=== PATIENT | female | born 2000 | race Two or more races ===

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

== ENCOUNTER 2019-03-09 06:16 | Day surgery (SDC) | payer BC ==
[2019-03-06 14:46] LABS: Urine WBC None Seen /hpf (0 - 5)
[2019-03-06 14:50] LABS: Basophils # (auto) 0 uL; Eosinophils # (auto) 0.1 uL; Eosinophils % (auto) 1.1 % (0.0-7.0); Lymphocytes # (auto) 3.3 uL; Lymphocytes % (auto) 34.8 % (10.0-50.0); Neutrophils # (auto) 5.6 uL; Nucleated Red Blood Cells % 0.1 %
[2019-03-06 14:52] LABS: Basophils % (auto) 0.2 % (0.0-2.0); Hematocrit 40.4 % (36.0-46.0); Hemoglobin 13.2 g/dL (12.2-16.2); Mean Corpuscular Hemoglobin 28.3 pg (28.0-32.0); Mean Corpuscular Hgb Conc. 32.7 g/dL (32.0-36.0); Mean Corpuscular Volume 86.5 fL (80.0-100.0); Monocytes # (auto) 0.4 uL; Monocytes % (auto) 4.6 % (0.0-12.0); Neutrophils % (auto) 59.3 % (37.0-80.0); Red Blood Cells 4.67 10^6/uL (4.0-5.20); Red Cell Distribution Width 13.7 % (11.8-14.3); White Blood Cell 9.4 10^3/uL (4.4-10.8)
[2019-03-06 15:05] LABS: Albumin 3.6 g/dL (3.4-5.0); Calcium 9.5 mg/dL (8.5-10.1)
[2019-03-06 15:09] LABS: BUN/Creatinine Ratio 17.5; Bilirubin, Total 0.4 mg/dL (0.2-1.0)
[2019-03-06 15:10] LABS: Platelet Count (auto) 490 10^3/uL (140-450)
[2019-03-06 15:16] LABS: Urine Bacteria FEW /hpf (None Seen); Urine Blood Negative /uL (Negative); Urine Budding Yeast FEW /hpf (None Seen); Urine Specific Gravity 1.005 (1.001-1.035)
[2019-03-06 15:32] LABS: INR 0.98 (0.9-1.15); Partial Thromboplastin Time 30.8 sec (23.64-32.05)
[~2019-03-09] VITALS: Ht 160 cm; Wt 64.4 kg
[2019-03-09] MEDS ORDERED: GLYCOPYRROLATE 0.2 MG/ML 1ML VIAL IV ONE (07:22)
[2019-03-09] MEDS ORDERED: ROCURONIUM 10MG/ML 10ML VIAL IV ONE (07:22)
[2019-03-09] MEDS ORDERED: NEOSTIGMINE 1 MG/ML INJ (10mg/10ML VIAL) IV ONE (07:22)
[2019-03-09] MEDS ORDERED: LABETALOL HCL 5 MG/ML 4ML SYRINGE IV PRN (07:30)
[2019-03-09] MEDS ORDERED: KETOROLAC TROMETH 15 mg/ml 1ML VL IV ONE (07:30)
[2019-03-09] MEDS ORDERED: MIDAZOLAM HCL 1MG/1ML-2 ML VIAL IV PRN (07:30)
[2019-03-09] MEDS ORDERED: HYDROmorphone HCL 2 MG/ML VL IV PRN (07:30)
[2019-03-09] MEDS ORDERED: ePHEDrine SULFATE 50 MG/ML AMP IV PRN (07:30)
[2019-03-09] MEDS ORDERED: ONDANSETRON HCL 4 MG/2 ML VIAL IV ONE (07:30)
[2019-03-09] MEDS ORDERED: fentaNYL CITRATE 100 MCG/2 ML VL ONE (07:33)
[2019-03-09] MEDS ORDERED: MIDAZOLAM HCL 1MG/1ML-2 ML VIAL ONE (07:33)
[2019-03-09] MEDS ORDERED: MEPERIDINE HCL (25 MG/ML) 1ML VIAL ONE ×2 (07:33→08:15)
[2019-03-09] MEDS ORDERED: DexAMETHasone SOD PHOS 10MG/1ML VIAL INJ ONE (07:50)
[2019-03-09] MEDS ORDERED: MORPHINE SULFATE 4 MG/ML SYR/VIAL IV ONE (08:00)
[2019-03-09] MEDS ORDERED: PROPOFOL 10 MG/ML 20 ML IV ONE (08:01)
[2019-03-09] MEDS ORDERED: KETOROLAC TROMETH 30 MG/ML 1ML VIAL ONE (08:13)
[2019-03-09 09:44] VITALS: BP 107/60
== END 2019-03-09 09:52 | disposition home or self-care (01) ==
LOC: SUR 06:16
PROVIDERS: ATTEND Otolaryngology
DX: J35.1 Hypertrophy of tonsils (principal); J35.8 Other chronic diseases of tonsils and adenoids; D64.9 Anemia, unspecified; J45.909 Unspecified asthma, uncomplicated; Z98.890 Other specified postprocedural states
CPT/HCPCS: 36415; 42826; 80053; 81001; 84702; 85025; 85610; 85730; 88302; J1100; J1885; J2175; J2250; J2704; J3010

== ENCOUNTER → 2019-07-19 | Outpatient (CLI) | payer BC ==
[2019-07-19 13:11] LABS: Urine Bacteria NONE SEEN /hpf (None Seen); Urine Blood Negative /uL (Negative); Urine Specific Gravity 1.008 (1.001-1.035); Urine WBC <1 /hpf (0 - 5)
[2019-07-19 13:13] LABS: Basophils # (auto) 0 uL; Basophils % (auto) 0.1 % (0.0-2.0); Eosinophils # (auto) 0.1 uL; Eosinophils % (auto) 1.1 % (0.0-7.0); Hematocrit 39.5 % (36.0-46.0); Hemoglobin 13.2 g/dL (12.2-16.2); Lymphocytes # (auto) 2.1 uL; Lymphocytes % (auto) 31.4 % (10.0-50.0); Mean Corpuscular Hemoglobin 28.9 pg (28.0-32.0); Mean Corpuscular Hgb Conc. 33.3 g/dL (32.0-36.0); Mean Corpuscular Volume 86.7 fL (80.0-100.0); Monocytes # (auto) 0.4 uL; Monocytes % (auto) 5.6 % (0.0-12.0); Neutrophils # (auto) 4.2 uL; Neutrophils % (auto) 61.8 % (37.0-80.0); Nucleated Red Blood Cells % 0.1 %; Platelet Count (auto) 378 10^3/uL (140-450); Red Blood Cells 4.56 10^6/uL (4.0-5.20); Red Cell Distribution Width 13.7 % (11.8-14.3); White Blood Cell 6.8 10^3/uL (4.4-10.8)
[2019-07-19 13:19] LABS: Calcium 9.3 mg/dL (8.5-10.1)
[2019-07-19 13:24] LABS: BUN/Creatinine Ratio 13.3; Bilirubin, Total 0.3 mg/dL (0.2-1.0); Total Protein 7.9 g/dL (6.4-8.2)
== END | disposition home or self-care (01) ==
LOC: LAB 12:34
PROVIDERS: ATTEND Family Medicine
DX: Z00.00 Encounter for general adult medical examination without abnormal findings (principal); J30.2 Other seasonal allergic rhinitis; R53.83 Other fatigue
CPT/HCPCS: 36415; 80053; 80061; 81001; 85025

== ENCOUNTER → 2019-08-08 | Day surgery (SDC) | payer BC ==
[2019-08-07 09:08] LABS: Basophils # (auto) 0 uL; Basophils % (auto) 0.1 % (0.0-2.0); Eosinophils # (auto) 0.1 uL; Eosinophils % (auto) 1.2 % (0.0-7.0); Hematocrit 41.7 % (36.0-46.0); Lymphocytes # (auto) 2.4 uL; Lymphocytes % (auto) 39.6 % (10.0-50.0); Mean Corpuscular Hemoglobin 29.2 pg (28.0-32.0); Mean Corpuscular Hgb Conc. 33.6 g/dL (32.0-36.0); Monocytes # (auto) 0.3 uL; Monocytes % (auto) 5.4 % (0.0-12.0); Neutrophils # (auto) 3.3 uL; Neutrophils % (auto) 53.7 % (37.0-80.0); Nucleated Red Blood Cells % 0.1 %; Platelet Count (auto) 423 10^3/uL (140-450); Red Blood Cells 4.79 10^6/uL (4.0-5.20); Red Cell Distribution Width 14.1 % (11.8-14.3); White Blood Cell 6.1 10^3/uL (4.4-10.8)
[2019-08-07 09:09] LABS: Urine Blood Negative /uL (Negative); Urine Specific Gravity 1.021 (1.001-1.035)
[2019-08-07 09:31] LABS: Albumin 4.1 g/dL (3.4-5.0); Potassium 4.2 mmol/L (3.5-5.1)
[2019-08-07 09:41] LABS: BUN/Creatinine Ratio 11.9; Bilirubin, Total 0.4 mg/dL (0.2-1.0); Calcium 9.2 mg/dL (8.5-10.1); Total Protein 7.9 g/dL (6.4-8.2)
[2019-08-07 09:51] LABS: INR 1.05 (0.9-1.15); Partial Thromboplastin Time 30.2 sec (23.64-32.05)
[~2019-08-08] VITALS: Ht 160 cm; Wt 56.7 kg
[~2019-08-08] MED LIST: ASPirin 81 mg TAB PO ONE; ETON1IMP SC; HYDROmorphone HCL 2 MG/ML VL IV PRN; KETOROLAC TROMETH 30 MG/ML 1ML VIAL IV ONE; LIDOCAINE 1% HCL (LOCAL ANESTH.) INJ 20ML MDV ONE; LIDOCAINE 2% (LOCAL ANESTH.) PF 5ml SDV ONE; LIDOCAINE HCL 2% TOP JELLY 5ML TOP ONE; MEPERIDINE HCL (25 MG/ML) 1ML VIAL ONE; METOCLOPRAMIDE HCL 5MG/ml INJ 2ml VIAL IV PRN; MIDAZOLAM HCL 1MG/1ML-2 ML VIAL ONE; MORPHINE SULF INJ 2 MG/ML SYRINGE 1ML IV ONE; MORPHINE SULF INJ 2 MG/ML SYRINGE 1ML ONE; MORPHINE SULF(PF) 0.5MG/ML 10ML VIAL ONE; MORPHINE SULFATE 4 MG/ML SYR/VIAL IV PRN; ONDANSETRON HCL 4 MG/2 ML VIAL ONE; PANTOPRAZOLE 40 MG TAB PO ONE; PROPOFOL 10 MG/ML 20 ML IV ONE; SODIUM CHLORIDE LOCK 10 ML ONE; SUCCINYLCHOLINE CHLORIDE 20 MG/ML 10ML VIAL IV ONE; ceFAZolin 1GM/50ML 50 ML IV ONE; fentaNYL CITRATE 100 MCG/2 ML VL IV PRN; fentaNYL CITRATE 100 MCG/2 ML VL ONE; fentaNYL CITRATE 5 ML ONE
[2019-08-08 11:30] VITALS: BP 111/74
== END | disposition home or self-care (01) ==
LOC: SUR 06:22
PROVIDERS: ATTEND Orthopaedic Surgery
DX: S83.282A Other tear of lateral meniscus, current injury, left knee, initial encounter (principal); M65.862 Other synovitis and tenosynovitis, left lower leg; J45.909 Unspecified asthma, uncomplicated; Z79.899 Other long term (current) drug therapy; X58.XXXA Exposure to other specified factors, initial encounter; Y93.89 Activity, other specified; Y92.89 Other specified places as the place of occurrence of the external cause; Y99.8 Other external cause status
CPT/HCPCS: 29876; 29882; 36415; 71045; 80053; 81003; 84484; 84702; 85025; 85379; 85610; 85730; 93005; J0330; J0690; J1885; J2001; J2175; J2250; J2270; J2405; J2704; J3010

== ENCOUNTER → 2020-03-07 | Outpatient (CLI) | payer BC ==
[~2020-03-07] MED LIST changes: -ASPirin 81 mg TAB PO ONE; -HYDROmorphone HCL 2 MG/ML VL IV PRN; -KETOROLAC TROMETH 30 MG/ML 1ML VIAL IV ONE; -LIDOCAINE 1% HCL (LOCAL ANESTH.) INJ 20ML MDV ONE; -LIDOCAINE 2% (LOCAL ANESTH.) PF 5ml SDV ONE; -LIDOCAINE HCL 2% TOP JELLY 5ML TOP ONE; -MEPERIDINE HCL (25 MG/ML) 1ML VIAL ONE; -METOCLOPRAMIDE HCL 5MG/ml INJ 2ml VIAL IV PRN; -MIDAZOLAM HCL 1MG/1ML-2 ML VIAL ONE; -MORPHINE SULF INJ 2 MG/ML SYRINGE 1ML IV ONE; -MORPHINE SULF INJ 2 MG/ML SYRINGE 1ML ONE; -MORPHINE SULF(PF) 0.5MG/ML 10ML VIAL ONE; -MORPHINE SULFATE 4 MG/ML SYR/VIAL IV PRN; -ONDANSETRON HCL 4 MG/2 ML VIAL ONE; -PANTOPRAZOLE 40 MG TAB PO ONE; -PROPOFOL 10 MG/ML 20 ML IV ONE; -SODIUM CHLORIDE LOCK 10 ML ONE; -SUCCINYLCHOLINE CHLORIDE 20 MG/ML 10ML VIAL IV ONE; -ceFAZolin 1GM/50ML 50 ML IV ONE; -fentaNYL CITRATE 100 MCG/2 ML VL IV PRN; -fentaNYL CITRATE 100 MCG/2 ML VL ONE; -fentaNYL CITRATE 5 ML ONE
[2020-03-07 16:47] LABS: Albumin 3.7 g/dL (3.4-5.0); Calcium 8.9 mg/dL (8.5-10.1); Magnesium 2.3 mg/dL (1.6-2.6); Potassium 3.8 mmol/L (3.5-5.1)
[2020-03-07 16:50] LABS: BUN/Creatinine Ratio 14.9; Bilirubin, Total 0.2 mg/dL (0.2-1.0); Total Protein 7.5 g/dL (6.4-8.2)
[2020-03-07 16:56] LABS: Basophils # (auto) 0 10 ^3/uL (0-0.2); Eosinophils # (auto) 0.1 10 ^3/uL (0-0.8); Hematocrit 38.7 % (36.0-46.0); Hemoglobin 12.8 g/dL (12.2-16.2); Lymphocytes # (auto) 2.6 10 ^3/uL (0.4-5.4); Lymphocytes % (auto) 28.3 % (10.0-50.0); Mean Corpuscular Hemoglobin 29.1 pg (28.0-32.0); Mean Corpuscular Hgb Conc. 33.1 g/dL (32.0-36.0); Mean Corpuscular Volume 87.9 fL (80.0-100.0); Monocytes # (auto) 0.5 10 ^3/uL (0-1.3); Monocytes % (auto) 5.4 % (0.0-12.0); Neutrophils # (auto) 5.9 10 ^3/uL (1.6-8.6); Neutrophils % (auto) 65.3 % (37.0-80.0); Nucleated Red Blood Cells % 0.1 %; Platelet Count (auto) 418 10^3/uL (140-450); White Blood Cell 9.1 10^3/uL (4.4-10.8)
== END | disposition home or self-care (01) ==
LOC: LAB 16:12
PROVIDERS: ATTEND Internal Medicine
DX: R00.2 Palpitations (principal); R06.2 Wheezing; R55 Syncope and collapse
CPT/HCPCS: 36415; 80053; 83735; 85025

== ENCOUNTER → 2020-03-19 | Outpatient (CLI) | payer BC ==
[2020-03-19 11:13] VITALS: BP 102/65
== END | disposition home or self-care (01) ==
LOC: XYW 10:45
PROVIDERS: ATTEND Internal Medicine
DX: R00.2 Palpitations (principal)
CPT/HCPCS: 93017

== ENCOUNTER → 2020-03-29 | Outpatient (CLI) | payer BC | END | disposition home or self-care (01) | LOC: XYW 08:38 | PROVIDERS: ATTEND Internal Medicine | DX: I07.1 Rheumatic tricuspid insufficiency (principal); R00.2 Palpitations; R07.9 Chest pain, unspecified | CPT/HCPCS: 93306 ==

== ENCOUNTER → 2020-07-09 | Outpatient (CLI) | payer BC ==
[2020-07-09 09:16] LABS: Basophils # (auto) 0 10 ^3/uL (0-0.2); Eosinophils # (auto) 0.1 10 ^3/uL (0-0.8); Eosinophils % (auto) 0.9 % (0.0-7.0); Monocytes # (auto) 0.5 10 ^3/uL (0-1.3); Neutrophils # (auto) 5.1 10 ^3/uL (1.6-8.6); Nucleated Red Blood Cells % 0.1 %; Red Cell Distribution Width 13.3 % (11.8-14.3)
[2020-07-09 09:19] LABS: Basophils % (auto) 0.2 % (0.0-2.0); Hematocrit 41.3 % (36.0-46.0); Lymphocytes # (auto) 2.7 10 ^3/uL (0.4-5.4); Lymphocytes % (auto) 32.1 % (10.0-50.0); Mean Corpuscular Hemoglobin 29.5 pg (28.0-32.0); Mean Corpuscular Hgb Conc. 33.8 g/dL (32.0-36.0); Mean Corpuscular Volume 87.3 fL (80.0-100.0); Neutrophils % (auto) 60.8 % (37.0-80.0); Platelet Count (auto) 505 10^3/uL (140-450); Red Blood Cells 4.74 10^6/uL (4.0-5.20); White Blood Cell 8.3 10^3/uL (4.4-10.8)
[2020-07-09 09:28] LABS: Urine Bacteria FEW /hpf (None Seen); Urine Blood Negative /uL (Negative); Urine Mucus FEW (None Seen); Urine Specific Gravity 1.018 (1.001-1.035); Urine WBC 12 /hpf (0 - 5)
[2020-07-09 10:07] LABS: Albumin 4.1 g/dL (3.4-5.0); Calcium 9.9 mg/dL (8.5-10.1); Potassium 4.2 mmol/L (3.5-5.1)
[2020-07-09 10:14] LABS: BUN/Creatinine Ratio 13.3; Bilirubin, Total 0.5 mg/dL (0.2-1.0); Total Protein 8.2 g/dL (6.4-8.2)
== END | disposition home or self-care (01) ==
LOC: LAB 08:42
PROVIDERS: ATTEND Family Medicine
DX: Z00.00 Encounter for general adult medical examination without abnormal findings (principal)
CPT/HCPCS: 36415; 80053; 80061; 81001; 83036; 84443; 85025

== ENCOUNTER → 2020-07-23 | Day surgery (SDC) | payer BC ==
[2020-07-17 09:55] LABS: Basophils # (auto) 0 10 ^3/uL (0-0.2); Basophils % (auto) 0.2 % (0.0-2.0); Eosinophils # (auto) 0.1 10 ^3/uL (0-0.8); Eosinophils % (auto) 1.9 % (0.0-7.0); Hematocrit 38.9 % (36.0-46.0); Hemoglobin 12.8 g/dL (12.2-16.2); Lymphocytes # (auto) 1.9 10 ^3/uL (0.4-5.4); Lymphocytes % (auto) 25.6 % (10.0-50.0); Mean Corpuscular Hemoglobin 28.8 pg (28.0-32.0); Mean Corpuscular Hgb Conc. 32.8 g/dL (32.0-36.0); Mean Corpuscular Volume 87.7 fL (80.0-100.0); Monocytes # (auto) 0.4 10 ^3/uL (0-1.3); Monocytes % (auto) 5.5 % (0.0-12.0); Neutrophils # (auto) 4.9 10 ^3/uL (1.6-8.6); Neutrophils % (auto) 66.8 % (37.0-80.0); Nucleated Red Blood Cells % 0.1 %; Platelet Count (auto) 455 10^3/uL (140-450); Red Blood Cells 4.44 10^6/uL (4.0-5.20); Red Cell Distribution Width 13.4 % (11.8-14.3); White Blood Cell 7.4 10^3/uL (4.4-10.8)
[2020-07-17 10:22] LABS: INR 1.03 (0.9-1.15)
[2020-07-17 11:03] LABS: Albumin 3.6 g/dL (3.4-5.0); Calcium 8.8 mg/dL (8.5-10.1); Potassium 4.1 mmol/L (3.5-5.1)
[2020-07-17 11:07] LABS: BUN/Creatinine Ratio 11.6; Bilirubin, Total 0.5 mg/dL (0.2-1.0); Total Protein 7.1 g/dL (6.4-8.2)
[~2020-07-23] VITALS: Ht 162.6 cm; Wt 58.1 kg
[~2020-07-23] MED LIST changes: +BUPIVACAINE HCL 50 ML ONE; +DexAMETHasone SOD PHOS 10MG/1ML VIAL INJ ONE; +EPINEPHrine HCL 1 MG/1 ML AMP ONE; +HYDROmorphone HCL 2 MG/ML VL IV PRN; +HYDROmorphone HCL 2 MG/ML VL ONE; +LIDOCAINE 1% HCL (LOCAL ANESTH.) INJ 20ML MDV ONE; +MIDAZOLAM HCL 1MG/1ML-2 ML VIAL ONE; +MORPHINE SULFATE 4 MG/ML SYR/VIAL IV PRN; +ONDANSETRON HCL 4 MG/2 ML VIAL IV PRN; +ONDANSETRON HCL 4 MG/2 ML VIAL ONE; +SODIUM CHLORIDE LOCK 10 ML ONE; +SUCCINYLCHOLINE CHLORIDE 20 MG/ML 10ML VIAL IV ONE; +ceFAZolin 1GM VL ONE; +ceFAZolin 1GM/50ML 50 ML IV ONE; +fentaNYL CITRATE 100 MCG/2 ML VL ONE; +fentaNYL CITRATE 5 ML ONE
[2020-07-23 10:30] VITALS: BP 138/72
== END | disposition home or self-care (01) ==
LOC: SUR 06:20
PROVIDERS: ATTEND Orthopaedic Surgery Sports Medicine
DX: M25.312 Other instability, left shoulder (principal); J45.909 Unspecified asthma, uncomplicated; I49.9 Cardiac arrhythmia, unspecified; F17.210 Nicotine dependence, cigarettes, uncomplicated; Z20.828 Contact with and (suspected) exposure to other viral communicable diseases; Z98.890 Other specified postprocedural states; Z79.899 Other long term (current) drug therapy
CPT/HCPCS: 29806; 36415; 80053; 84702; 85025; 85610; 85730; 87426; J0171; J0330; J0690; J1100; J1170; J2001; J2250; J2405; J3010; J3490; A4565

== ENCOUNTER → 2020-09-13 | Outpatient (CLI) | payer BC ==
[~2020-09-13] MED LIST changes: -BUPIVACAINE HCL 50 ML ONE; -DexAMETHasone SOD PHOS 10MG/1ML VIAL INJ ONE; -EPINEPHrine HCL 1 MG/1 ML AMP ONE; -HYDROmorphone HCL 2 MG/ML VL IV PRN; -HYDROmorphone HCL 2 MG/ML VL ONE; -LIDOCAINE 1% HCL (LOCAL ANESTH.) INJ 20ML MDV ONE; -MIDAZOLAM HCL 1MG/1ML-2 ML VIAL ONE; -MORPHINE SULFATE 4 MG/ML SYR/VIAL IV PRN; -ONDANSETRON HCL 4 MG/2 ML VIAL IV PRN; -ONDANSETRON HCL 4 MG/2 ML VIAL ONE; -SODIUM CHLORIDE LOCK 10 ML ONE; -SUCCINYLCHOLINE CHLORIDE 20 MG/ML 10ML VIAL IV ONE; -ceFAZolin 1GM VL ONE; -ceFAZolin 1GM/50ML 50 ML IV ONE; -fentaNYL CITRATE 100 MCG/2 ML VL ONE; -fentaNYL CITRATE 5 ML ONE
[2020-09-13 09:33] LABS: Basophils # (auto) 0 10 ^3/uL (0-0.2); Basophils % (auto) 0.2 % (0.0-2.0); Eosinophils # (auto) 0 10 ^3/uL (0-0.8); Hemoglobin 12.4 g/dL (12.2-16.2); Lymphocytes # (auto) 1.8 10 ^3/uL (0.4-5.4); Monocytes # (auto) 0.3 10 ^3/uL (0-1.3); Neutrophils # (auto) 4.5 10 ^3/uL (1.6-8.6)
[2020-09-13 09:35] LABS: Eosinophils % (auto) 0.6 % (0.0-7.0); Hematocrit 35.7 % (36.0-46.0); Mean Corpuscular Hemoglobin 30.1 pg (28.0-32.0); Mean Corpuscular Hgb Conc. 34.6 g/dL (32.0-36.0); Mean Corpuscular Volume 87.1 fL (80.0-100.0); Monocytes % (auto) 4.9 % (0.0-12.0); Neutrophils % (auto) 67.3 % (37.0-80.0); Platelet Count (auto) 484 10^3/uL (140-450); Red Cell Distribution Width 14.1 % (11.8-14.3); White Blood Cell 6.7 10^3/uL (4.4-10.8)
[2020-09-13 10:00] LABS: Albumin 3.7 g/dL (3.4-5.0); Amphetamine Screen, Urine NEGATIVE (NEGATIVE); Barbiturate Scree,Urine NEGATIVE (NEGATIVE); Benzodiazephine Screen, Urine NEGATIVE (NEGATIVE); Calcium 8.9 mg/dL (8.5-10.1); Cannabinoid Screen, Urine NEGATIVE (NEGATIVE); Cocaine Screen, Urine NEGATIVE (NEGATIVE); Opiate Scree,Urine NEGATIVE (NEGATIVE); Phencyclidine Screen, Urine NEGATIVE (NEGATIVE); Potassium 4.3 mmol/L (3.5-5.1)
[2020-09-13 10:04] LABS: BUN/Creatinine Ratio 15.2; Bilirubin, Total 0.3 mg/dL (0.2-1.0); Total Protein 7.8 g/dL (6.4-8.2)
== END | disposition home or self-care (01) ==
LOC: LAB 09:12
PROVIDERS: ATTEND Nurse Practitioner Acute Care
DX: R06.02 Shortness of breath (principal); R00.2 Palpitations; R00.0 Tachycardia, unspecified; Z87.898 Personal history of other specified conditions
CPT/HCPCS: 36415; 80053; 80307; 84439; 84443; 85025

== ENCOUNTER → 2021-03-12 | Outpatient (CLI) | payer BC | END | disposition home or self-care (01) | LOC: LAB 07:43 | PROVIDERS: ATTEND Internal Medicine | DX: E27.0 Other adrenocortical overactivity (principal); E16.2 Hypoglycemia, unspecified | CPT/HCPCS: 36415; 82533; 83036; 83525 ==

== ENCOUNTER → 2021-04-16 | Outpatient (CLI) | payer BC ==
[2021-04-16 16:48] LABS: Basophils # (auto) 0 10 ^3/uL (0-0.2); Basophils % (auto) 0.3 % (0.0-2.0); Eosinophils # (auto) 0.1 10 ^3/uL (0-0.8); Eosinophils % (auto) 1.2 % (0.0-7.0); Hematocrit 38.1 % (36.0-46.0); Hemoglobin 12.8 g/dL (12.2-16.2); Lymphocytes # (auto) 2.8 10 ^3/uL (0.4-5.4); Lymphocytes % (auto) 32.6 % (10.0-50.0); Mean Corpuscular Hemoglobin 29.3 pg (28.0-32.0); Mean Corpuscular Hgb Conc. 33.7 g/dL (32.0-36.0); Mean Corpuscular Volume 86.8 fL (80.0-100.0); Monocytes # (auto) 0.6 10 ^3/uL (0-1.3); Monocytes % (auto) 6.3 % (0.0-12.0); Neutrophils # (auto) 5.2 10 ^3/uL (1.6-8.6); Neutrophils % (auto) 59.6 % (37.0-80.0); Nucleated Red Blood Cells % 0.1 %; Red Blood Cells 4.39 10^6/uL (4.0-5.20); Red Cell Distribution Width 13.2 % (11.8-14.3); White Blood Cell 8.7 10^3/uL (4.4-10.8)
[2021-04-16 17:13] LABS: Albumin 3.4 g/dL (3.4-5.0); Potassium 4.1 mmol/L (3.5-5.1)
[2021-04-16 17:22] LABS: BUN/Creatinine Ratio 20.5; Bilirubin, Total 0.2 mg/dL (0.2-1.0); CRP High Sensitivity 0.5 mg/dL (< 0.3); Total Protein 7.3 g/dL (6.4-8.2)
== END | disposition home or self-care (01) ==
LOC: LAB 08:31
PROVIDERS: ATTEND Family Medicine
DX: R00.0 Tachycardia, unspecified (principal)
CPT/HCPCS: 36415; 80053; 85025; 85652; 86141

== ENCOUNTER → 2021-08-27 | Outpatient (CLI) | payer BC | END | disposition home or self-care (01) | LOC: LAB 15:52 | PROVIDERS: ATTEND Student in an Organized Health Care Education/Training Program | DX: I47.1 Supraventricular tachycardia (principal); M25.50 Pain in unspecified joint; Z82.61 Family history of arthritis; Z84.1 Family history of disorders of kidney and ureter | CPT/HCPCS: 86038; 86431 ==

== ENCOUNTER → 2021-11-11 | Outpatient (CLI) | payer BC ==
[2021-11-11 11:48] LABS: Basophils # (auto) 0.1 10 ^3/uL (0-0.2); Basophils % (auto) 1.2 % (0.0-2.0); Eosinophils # (auto) 0.1 10 ^3/uL (0-0.8); Eosinophils % (auto) 1.6 % (0.0-7.0); Hematocrit 37.5 % (36.0-46.0); Hemoglobin 12.7 g/dL (12.2-16.2); Lymphocytes # (auto) 1.7 10 ^3/uL (0.4-5.4); Lymphocytes % (auto) 24.4 % (10.0-50.0); Mean Corpuscular Hemoglobin 29.5 pg (28.0-32.0); Mean Corpuscular Hgb Conc. 33.9 g/dL (32.0-36.0); Mean Corpuscular Volume 87.1 fL (80.0-100.0); Monocytes # (auto) 0.3 10 ^3/uL (0-1.3); Monocytes % (auto) 4.9 % (0.0-12.0); Neutrophils # (auto) 4.8 10 ^3/uL (1.6-8.6); Neutrophils % (auto) 67.9 % (37.0-80.0); Nucleated Red Blood Cells % 0.1 %; Red Blood Cells 4.31 10^6/uL (4.0-5.20); Red Cell Distribution Width 13.4 % (11.8-14.3); White Blood Cell 7.1 10^3/uL (4.4-10.8)
[2021-11-11 12:54] LABS: Calcium 9.2 mg/dL (8.5-10.1)
[2021-11-11 12:56] LABS: BUN/Creatinine Ratio 17.1; Bilirubin, Total 0.5 mg/dL (0.2-1.0); CRP High Sensitivity 0.19 mg/dL (< 0.3); Total Protein 7.5 g/dL (6.4-8.2)
[2021-11-11 16:45] LABS: Urine Bacteria NONE SEEN /hpf (None Seen); Urine Blood Negative /uL (Negative); Urine Specific Gravity 1.006 (1.001-1.035); Urine WBC <1 /hpf (0 - 5)
== END | disposition home or self-care (01) ==
LOC: LAB 10:12
PROVIDERS: ATTEND Internal Medicine Rheumatology
DX: M05.79 Rheumatoid arthritis with rheumatoid factor of multiple sites without organ or systems involvement (principal); R94.5 Abnormal results of liver function studies
CPT/HCPCS: 36415; 80053; 81001; 85025; 85652; 86038; 86141; 86705; 87340

== ENCOUNTER 2024-04-05 20:38 | Emergency (ER) | payer BC ==
[~2024-04-05] VITALS: Ht 162.6 cm; Wt 69.8 kg
[~2024-04-05 20:38] MED LIST changes: -ETON1IMP SC; +ETON68IM3 SC
[2024-04-05 23:44] VITALS: BP 117/67; PULSE 80; RESP 20; TEMP 98.2; O2SAT 98
[2024-04-06] MEDS ORDERED: IBUP-1456 PO (00:51)
[2024-04-06] MEDS: IBUPROFEN 600 MG TAB PO ONE (00:58)
== END 2024-04-06 01:13 | disposition home or self-care (01) ==
LOC: ER 20:40 → EDBD 20:40 → ER 04-06 01:13
DX: S83.91XA Sprain of unspecified site of right knee, initial encounter (principal); X58.XXXA Exposure to other specified factors, initial encounter; Y93.89 Activity, other specified; Y92.89 Other specified places as the place of occurrence of the external cause; Y99.8 Other external cause status
CPT/HCPCS: 29505; 73562

== ENCOUNTER 2024-07-25 06:38 | Day surgery (SDC) | payer BC ==
[2024-07-19 12:10] LABS: Urine Bacteria None Seen /hpf (None Seen)
[2024-07-19 12:17] LABS: Basophils # (auto) 0 10 ^3/uL (0-0.2); Basophils % (auto) 0.2 % (0.0-2.0); Eosinophils # (auto) 0.1 10 ^3/uL (0-0.8); Eosinophils % (auto) 1.2 % (0.0-7.0); Hematocrit 37.9 % (36.0-46.0); Hemoglobin 12.8 g/dL (12.2-16.2); Lymphocytes # (auto) 2.7 10 ^3/uL (0.4-5.4); Lymphocytes % (auto) 32.3 % (10.0-50.0); Mean Corpuscular Hemoglobin 29.8 pg (28.0-32.0); Mean Corpuscular Hgb Conc. 33.8 g/dL (32.0-36.0); Mean Corpuscular Volume 88.3 fL (80.0-100.0); Monocytes # (auto) 0.5 10 ^3/uL (0-1.3); Monocytes % (auto) 6.1 % (0.0-12.0); Neutrophils # (auto) 5.1 10 ^3/uL (1.6-8.6); Neutrophils % (auto) 60.2 % (37.0-80.0); Platelet Count (auto) 419 10^3/uL (140-450); Red Blood Cells 4.29 10^6/uL (4.0-5.20); Red Cell Distribution Width 13.7 % (11.8-14.3); White Blood Cell 8.4 10^3/uL (4.4-10.8)
[2024-07-19 12:23] LABS: Urine Blood Negative /uL (Negative); Urine Clarity Clear (Clear); Urine Color Light-Yellow (Yellow); Urine Protein, UAD Negative (Negative); Urine Specific Gravity 1.019 (1.001-1.035); Urine Squamous Epithelial Cell FEW /hpf (<5); Urine Urobilinogen Normal (Negative); Urine WBC 1 /hpf (0 - 5)
[2024-07-19 12:32] LABS: INR 1.03 (0.9-1.15); Partial Thromboplastin Time 30.5 SEC (24.5-34.5); Prothrombin Time 10.9 sec (9.3-11.8)
[2024-07-19 12:33] LABS: Alanine Aminotransferase 16 U/L (7-40); Albumin 4.6 g/dL (3.2-4.8); Alkaline Phosphatase 72 U/L (46-116); Anion Gap 5 (5-15); BUN/Creatinine Ratio 10.3 (10.0-20.0); Blood Urea Nitrogen 9 mg/dL (9-23); Calcium 10.2 mg/dL (8.7-10.4); Carbon Dioxide 25 mmol/L (20-31); Glucose 88 mg/dL (74-106); Potassium 4.4 mmol/L (3.5-5.1); Sodium 140 mmol/L (136-145)
[2024-07-19 12:34] LABS: Bilirubin, Total 0.5 mg/dL (0.2-1.0)
[2024-07-19 12:35] LABS: Aspartate Aminotransferase < 8 U/L (13-40); Chloride 110 mmol/L (98-107)
[~2024-07-25] VITALS: Ht 162.6 cm; Wt 70.3 kg
[~2024-07-25 06:38] MED LIST changes: +PROP80CA40 PO
[2024-07-25] MEDS ORDERED: ceFAZolin 2 GM/D5W100ml 100 ML IV ONE (07:33)
[2024-07-25] MEDS ORDERED: fentaNYL CITRATE 100 MCG/2 ML VL ONE ×2 (09:34→11:54)
[2024-07-25] MEDS ORDERED: KETAMINE 50mg/ML 1ml syringe ONE (09:34)
[2024-07-25] MEDS ORDERED: MIDAZOLAM HCL 2MG/2ML 2ml VIAL (1mg/ml) ONE (09:34)
[2024-07-25] MEDS ORDERED: PROPOFOL 10 MG/ML 20 ML IV ONE (09:35)
[2024-07-25] MEDS ORDERED: ONDANSETRON HCL 4 MG/2 ML VIAL ONE (09:35)
[2024-07-25] MEDS ORDERED: KETOROLAC TROMETH 30 MG/ML 1ML VIAL ONE (09:35)
[2024-07-25] MEDS ORDERED: LIDOCAINE 2% (LOCAL ANESTH.) PF 5ml SDV ONE (09:35)
[2024-07-25] MEDS ORDERED: GLYCOPYRROLATE 0.2 MG/ML 1ML VIAL ONE (09:35)
[2024-07-25] MEDS ORDERED: DexAMETHasone SOD PHOS 10MG/1ML VIAL INJ ONE (09:35)
[2024-07-25] MEDS ORDERED: EPINEPHrine HCL 1 MG/1 ML AMP ONE (09:41)
[2024-07-25] MEDS ORDERED: BUPIVACAINE 0.25% INJ 50ML VIAL ONE (09:42)
[2024-07-25] MEDS ORDERED: ROPIVACAINE 0.5% (5MG/ML) 20ML AMPULE IJ ONE (11:28)
[2024-07-25] MEDS ORDERED: HYDROmorphone HCL 2 MG/ML VL/or syr ONE (11:44)
[2024-07-25] MEDS ORDERED: BACITRACIN TOP OINT 1 UD PKG TOP ONE (12:21)
[2024-07-25 13:52] VITALS: TEMP 97.5; O2SAT 94
[2024-07-25] MEDS ORDERED: HYDR1TAB97 PO (13:59)
[2024-07-25] MEDS ORDERED: ASPI-498 OR (14:03)
[2024-07-25] MEDS ORDERED: CEPH500C PO (14:03)
--- NOTE | 2024-07-25 14:07 | DVHOP2 ---
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 Echols Anesthesia: General, Regional Implant: Arthrex quadriceps graft button x2, SwiveLock x1, InternalBrace x1 Consent: The patient was informed of the risks and benefits of the procedure. These include but are not limited to complications of anesthesia, postoperative infection, incomplete relief of symptoms, recurrence of symptoms, damage to blood vessels, nerves and tendons, deep venous thrombosis, pulmonary embolism and possible need for repeat surgery in the future. Complications: None Estimated Blood Loss: 10 mL Indications for Surgery: The patient is a 23-year-old female who presented to the clinic with a history of knee injury. Clinical and radiological evaluation demonstrated a complete ACL tear. Nonoperative and operative management options were discussed. Given the active nature of the patient's activities, surgery in the form of ACL reconstruction was recommended. Benefits, risks and treatment alternatives were discussed. Specific complications of the surgery such as neurovascular injury, infection, arthrofibrosis, loss of limb or life were discussed. The patient decided to proceed with the surgical option. Name of Procedure Performed Right knee arthroscopy with ACL reconstruction using quadriceps autograft and chondroplasty of the patella Procedure Details Procedure Details: The patient was identified in the preoperative holding area and the surgical site was marked. The consent was verified. The patient was brought into the operating room and placed supine on the operating table. General anesthesia was administered. A tourniquet was applied over the proximal thigh. All the bony prominences were appropriately padded. The knee was positioned appropriately. The extremity was now prepped and draped in the usual sterile manner. A timeout was called out to confirm the identity of the patient, the nature of surgery, the site of surgery, the availability of implants and x-rays and allergies to medications. The knee was examined under anesthesia and was found to have positive anterior drawer and Amanda test. Dial test was negative. Valgus and varus stress tests were negative. GRAFT HARVEST: An incision was made from the superior pole of the patella to approximately 6 cm. The skin and the subcutaneous tissue were dissected. The quadriceps tendon was identified. The sheath was incised. Next, the insertion at the patellar border was released with the help of sharp dissection. The edge of the quadriceps tendon was now whipstitched with a FiberWire. The graft harvester was now inserted and slowly advanced superiorly under visualization to harvest around 7 cm of the quadriceps tendon. This was a full thickness q uadriceps tendon harvest. The diameter was approximately 10 mm. This was augmented with an internal brace. It was prepared on both sides with the help of change house attendant's guidelines and graft preparation technique. It was whipstitched at both ends and loaded onto the adjustable loop. KNEE ARTHROSCOPY: A standard anterolateral portal was established. A 30 scope was inserted. A standard anteromedial portal was established. A probe was inserted and the findings were as follows 1. Complete ACL tear 2. Intact medial meniscus 3. Intact medial compartment articular cartilage 4. Intact lateral meniscus 5. Intact PCL 6. No loose bodies 7. Chondromalacia, grade 3, small area undersurface of the patella 8. Intact lateral compartment articular cartilage Chondroplasty of the patella was done with the help of a thermal ablation device. This was an unstable flap. However, the area was very small, approximately 9-10 mm in length, it was a linear fissure. Excellent prognosis. NOTCHPLASTY AND FEMORAL TUNNEL PREPARATION: The ACL footprint was identified on the femoral side. This was debrided for better visualization. The rest of the ACL was removed with help of a shaver. A notchplasty was performed using a tunnel and approximately 5 mm of lateral wall was removed. Next an outside in jig was inserted. A small incision was made over the lateral distal femur. The skin and the subcutaneous tissue were dissected. The deep fascia was incised and then the iliotibial band was incised. The jig was inserted. Next a guidepin was inserted. Next a retroreamer was inserted on top of the guidepin. This was a 10 reamer based on the graft size. The femoral tunnel was drilled up to approximately 28 mm. Next, a loop was inserted through the femoral tunnel. TIBIAL TUNNEL PREPARATION: Next a tibial guide was inserted through the anteromedial portal. Next a guidewire was inserted through the jig. This was at the center of the ACL tibial footprint. A 11 reamer was used to drill the tunnel. Next the lasso loop was retrieved through the tibial tunnel. The graft was now brought into the operative field and the sutures were inserted into the loop and retrieved through the femoral side. The button was visualized entering into the tunnel with the scope in the anteromedial portal and it was flipped. This was confirmed by pulling on the tibial side and cycling the knee. Excellent fixation was noted. The adjustable loop was now pulled from the femoral side with some traction maintained on the tibial side so as to bring the graft within the knee and within the femoral tunnel. This was marked at 20 mm to confirm that adequate portion of the graft is inside the tunnel. Good graft isometry was noted by flexing and extending the knee. The tibial side was fixed with adjustable loop technique over a button. The internal brace was also used to augment the fixation by wrapping it around the button and then inserting it into the SwiveLock. A drill guide was used to drill the hole and then a tap was used. Next the SwiveLock anchor was used with the internal brace sutures and inserted into the tibia. Good fixation was noted. The knee joint was entered once again to assess the tension of the graft and this was noted to be adequate. The sutures on the femoral side, through the button were tied so as to doubly secure the graft on the femoral side. C-arm images were obtained throughout the procedure to confirm position of the implants. Irrigation was given. The quadriceps tendon was closed with nonabsorbable sutures, FiberWire tape. The deep tissue was closed with 2-0 Vicryl and the skin was closed with 3-0 Monocryl. Sterile dressing was applied including Steri-Strips and Xeroform. The knee was placed in a hinged range of motion brace set at -10 to 90 Disposition: Good, the patient was extubated and taken to the recovery without any complications. The patient was examined in the recovery and had intact neurovascular exam Plan: Weight-bear as tolerated, will need crutches for ambulation for the first 1 week. Brace range from 0 to 90 degrees. Follow-up in 1 to 2 weeks. Condition Good Disposition Home JONNY BANDA MD Jul 25, 2024 14:07
[2024-07-25] MEDS ORDERED: ONDANSETRON HCL 4 MG/2 ML VIAL IV ONE (14:15)
[2024-07-25] MEDS: HYDROmorphone HCL 2 MG/ML VL/or syr IV PRN (14:49)
[2024-07-25 15:07] VITALS: O2SAT 99
[2024-07-25 15:32] VITALS: BP 112/69; PULSE 75; RESP 17
--- NOTE | 2024-07-25 19:03 | DVH ---
EXAM: XY C ARM FLUOROSCOPY UP TO 60MIN HISTORY: RIGHT KNEE ACL RECONSTRUCTION. Right knee arthroscopy. FINDINGS: Fluoroscopy was provided for an intraoperative procedure. No images were obtained. 11.7 seconds of fluoroscopic time was utilized. Cumulative radiation dose was reported at 0.53 mGy. IMPRESSION: 1. Fluoroscopy was provided for operative guidance. Please refer to the operative report for detailed information.
--- NOTE | 2024-07-25 19:31 | DVH ---
C-ARM FLUOROSCOPY: PROCEDURE: ACL reconstruction FLUOROSCOPY TIME: refer to operative report
[2024-08-22] MEDS ORDERED: CEPH500C PO (14:16)
== END 2024-07-25 15:44 | disposition home or self-care (01) ==
LOC: SUR 06:38
PROVIDERS: ATTEND Orthopaedic Surgery Sports Medicine
DX: S83.511A Sprain of anterior cruciate ligament of right knee, initial encounter (principal); M22.41 Chondromalacia patellae, right knee; J45.990 Exercise induced bronchospasm; X58.XXXA Exposure to other specified factors, initial encounter; Y93.89 Activity, other specified; Y92.89 Other specified places as the place of occurrence of the external cause; Y99.8 Other external cause status; Z98.890 Other specified postprocedural states
CPT/HCPCS: 29888; 36415; 73562; 76000; 80053; 81001; 84702; 85025; 85610; 85730; C1713; J1100; J1171; J1885; J2003; J2250; J2405; J2704; J2795; J3010; J0171; J3490

== ENCOUNTER 2024-07-31 11:51 | Emergency (ER) | payer BC ==
[~2024-07-31] VITALS: Ht 162.6 cm; Wt 70.0 kg
[~2024-07-31 11:51] MED LIST changes: +ASPI-498 OR; +CEPH500C PO; +HYDR1TAB97 PO
[2024-07-31 13:37] VITALS: BP 137/84; PULSE 89; RESP 16; TEMP 98.7; O2SAT 97
--- NOTE | 2024-07-31 14:22 | ED.PDOC ---
Musculoskeletal HPI Comments sent by PCP to r/o dvt had acl reconstruction 1 week ago and now c;o pain tot anterior tibia Denies chest pain shortness of breath Chief Complaint: Lower Extremity Time Seen by MD: 13:28 Primary Care Provider: MAURICIO Bundy Notes: Nurses Notes, Medications, Allergies Allergies: Coded Allergies: NO KNOWN ALLERGIES (Unverified , 07/17/20) Home Meds Active Scripts Cephalexin Monohydrate (Cephalexin) 500 Mg Cap, 1 CAP PO TID for 5 Days, #15 CAP Prov:JONNY JAIMES MD 07/25/24 Aspirin (ASPIRIN 81) 81 Mg Tab, 81 MG OR DAILY for 20 Days, #20 TAB Prov:JONNY JAIMES MD 07/25/24 Hydrocodone-Acetaminophen (Hydrocodone/Acetaminophen 5-325 mg) 1 Tab Tab, 1 TAB PO Q6HP PRN for 7 Days, #28 TAB Prov:JONNY JAIMES MD 07/25/24 Reported Medications Propranolol Hcl (Inderal La) 80 Mg Cap, 40 MG PO DAILY, CAP 07/19/24 Etonogestrel (NEXPLANON) 68 Mg Imp, 68 MG SC UD, IMP 08/07/19 Information Source: Patient Mode of Arrival: Wheelchair Past Medical History PAST MEDICAL HISTORY: Denies Surgical History: Tonsillectomy CLIMBING GUIDE History: Denies all CLIMBING GUIDE Hx Family History Family History: Unknown Social History Smoker: Non-Smoker Alcohol: Denies ETOH Use Drugs: Denies Drug Use Lives In: Home All Other Systems: Reviewed and Negative (Per HPI) Physical Exam General Appearance: No Apparent Distress, Normal HEENT: Normal ENT Inspection, Pharynx Normal, TMs Normal Neck: Full Range of Motion, Non-Tender, Normal, Normal Inspection Respiratory: Chest Non-Tender, Lungs Clear, No Accessory Muscle Use, No Respiratory Distress, Normal Breath Sounds Cardiovascular: No Edema, No JVD, No Murmur, No Gallop, Normal Peripheral Pulses, Regular Rate/Rhythm Breast Exam: Deferred Gastrointestinal: No Organomegaly, Non Tender, No Pulsatile Mass, Normal Bowel Sounds, Soft Genitalia: Deferred Pelvic: Deferred Rectal: Deferred Extremities: No calf tenderness, Normal capillary refill, Normal inspection, Normal range of motion, Non-tender, No pedal edema Musculoskeletal : Apperance: Normal Neurologic: Alert, varnish remover II-XII nml as Tested, No Motor Deficits, Normal Affect, Normal Mood, No Sensory Deficits Cerebellar Function: Normal Reflexes: Normal Skin: Dry, Normal Color, Warm Lymphatic: No Adenopathy Was a procedure done? Was a procedure done?: No Differential Diagnosis EXT Differential Diagnosis: Deep Vein Thrombosis, Other X-Ray, Labs, Meds, VS Vital Signs Date Time Temp Pulse Resp B/P (MAP) Pulse Ox O2 Delivery O2 Flow Rate FiO2 07/31/24 13:37 89 16 97 Room Air 07/31/24 13:37 98.7 89 16 137/84 (101) 97 98.7 07/31/24 12:12 98.7 89 16 131/84 (100) 97 PATIENT: RAMA BARNES RACCT: [id number]: [id number] : 2000 LOC: ER ROOM / BED: / AGE / SEX: 23 / F ADM STATUS: REG ER SERVICE 1420 ORDERING PHYSICIAN: MARLA HEATH NP PROCEDURE(s): RLDVT - RT Lower DVT REASON: r/o dvt ORDER NUMBER(s): [id number], ACCESSION NUMBER(s): [id number] Right lower extremity venous duplex Clinical History: r/o dvt Comparison: None Technique: Duplex Doppler evaluation of the deep venous system of the right lower extremity from the common femoral vein to the popliteal vein including color Doppler and spectral/pulsed waveform analysis was performed. Findings: The common femoral vein demonstrates appropriate compressibility and waveform va riability. There is compressibility/patency of the great saphenous vein at the proximal thigh. The femoral vein demonstrates appropriate compressibility and waveform variability. The deep femoral vein demonstrates appropriate compressibility and waveform variability. The popliteal vein demonstrates appropriate compressibility and waveform variability. There is normal compressibility at the tibioperoneal trunk. Impression: 1. No right femoropopliteal venous thrombosis. 2. If clinical concern/symptoms persist or worsen, short-interval follow-up study is suggested. HS:Y ATED BY: VAL KONG DO DICTATED DATE/TIME: 07/31/241517 SIGNED BY: VAL KONG DO SIGNED DATE/TIME: 07/31/241517 CC: X-Ray, Labs, Meds, VS Comment Patient is stable for discharge at this time. External notes reviewed. Test results and diagnostic imaging interpreted. All diagnostic findings, discharge care, education and instructions provided Follow-up with PCP in 2 to 3 days Patient verbalized understanding and agreed to treatment plan Vital signs stable, afebrile, no acute distress noted Patient ambulatory with strong steady gait Advised to return precautions for any new or worsening symptoms, return to ER immediately for re-evaluation Patient is aware that the purpose of this visit was for an acute medical emergency requiring emergent stabilization. Chronic conditions, including malignancies have not been ruled out. Patient is instructed to follow up with PCP as directed and discharge instructions for continued care and workup. If unable to arrange follow-up, patient is to return to the emergency department for reassessment. Patient (parent or legal guardian if applicable) was given verbal and written discharge instructions and acknowledges understanding. Time of 1ST Reevaluation: 15:34 Reevaluation 1ST: Improved Patient Education/Counseling: Diagnosis, Treatment Family Education/Counseling: Diagnosis, Treatment Departure 1 Departure Time of Disposition: 15:34 Impression: Primary Impression: Suspected DVT (deep vein thrombosis) Additional Impression: Pain of right tibia Disposition: 01 HOME / SELF CARE / HOMELESS Condition: Stable Discharged With: Self Critical Care Note Critical Care Time?: No Stability Stability form required: No Heart Score Heart Score: Heart Score Response (Comments) Value History N/A 0 EKG N/A 0 Age N/A 0 Risk Factors N/A 0 Troponin N/A 0 Total 0 MARLA HEATH NP Jul 31, 2024 14:22
--- NOTE | 2024-07-31 15:20 | DVH ---
Right lower extremity venous duplex Clinical History: r/o dvt Comparison: None Technique: Duplex Doppler evaluation of the deep venous system of the right lower extremity from the common femoral vein to the popliteal vein including color Doppler and spectral/pulsed waveform analys is was performed. Findings: The common femoral vein demonstrates appropriate compressibility and waveform variability. There is compressibility/patency of the great saphenous vein at the proximal thigh. The femoral vein demonstrates appropriate compressibility and waveform variability. The deep femoral vein demonstrates appropriate compressibility and waveform variability. The popliteal vein demonstrates appropriate compressibility and waveform variability. There is normal compressibility at the tibioperoneal trunk. Impression: 1. No right femoropopliteal venous thrombosis. 2. If clinical concern/symptoms persist or worsen, short-interval follow-up study is suggested. HS:Y
== END 2024-07-31 15:35 | disposition home or self-care (01) ==
LOC: ER 11:51
DX: I82.491 Acute embolism and thrombosis of other specified deep vein of right lower extremity (principal); Z79.82 Long term (current) use of aspirin; Z79.899 Other long term (current) drug therapy; Z90.89 Acquired absence of other organs
CPT/HCPCS: 93971

== ENCOUNTER → 2025-04-10 | Day surgery (SDC) | payer BC ==
[2025-04-03 13:59] LABS: Nucleated Red Blood Cells % 0.0 %
[2025-04-03 14:01] LABS: Hematocrit 38.9 % (36.0-46.0); Hemoglobin 13.4 g/dL (12.2-16.2); Mean Corpuscular Hemoglobin 30.1 pg (28.0-32.0); Mean Corpuscular Volume 87.8 fL (80.0-100.0)
[2025-04-03 14:14] LABS: INR 0.97 (0.9-1.15); Partial Thromboplastin Time 31.0 SEC (24.5-34.5); Prothrombin Time 10.3 sec (9.3-11.8)
[2025-04-03 14:17] LABS: Alanine Aminotransferase 14 U/L (7-40); Albumin 4.8 g/dL (3.2-4.8); Alkaline Phosphatase 72 U/L (46-116); Anion Gap 7 (5-15); BUN/Creatinine Ratio 13.4 (10.0-20.0); Bilirubin, Total 0.3 mg/dL (0.2-1.0); Blood Urea Nitrogen 13 mg/dL (9-23); Calcium 9.7 mg/dL (8.7-10.4); Carbon Dioxide 24 mmol/L (20-31); Chloride 107 mmol/L (98-107); Glucose 97 mg/dL (74-106); Potassium 4.2 mmol/L (3.5-5.1); Sodium 138 mmol/L (136-145); Total Protein 7.3 g/dL (5.7-8.2)
[2025-04-03 14:43] LABS: Urine Protein, UAD Negative (Negative)
[~2025-04-10] VITALS: Ht 162.6 cm; Wt 70.3 kg
[~2025-04-10] MED LIST changes: -ASPI-498 OR; -CEPH500C PO; -ETON68IM3 SC; -HYDR1TAB97 PO; +HYDROmorphone HCL 2 MG/ML VL/or syr IV PRN; +HYDROmorphone HCL 2 MG/ML VL/or syr ONE; +KETAMINE 50mg/ML 1ml syringe ONE; +LIDOCAINE 1% INJ PF 5ML AMP ONE; +LIDOCAINE HCL 2% TOP JELLY 5ML TOP ONE; +MIDAZOLAM HCL 2MG/2ML 2ml VIAL (1mg/ml) ONE; +MORPHINE SULFATE INJ 2 MG/ml SYRG IV PRN; +PROPOFOL 10 MG/ML 20 ML IV ONE; +SODIUM CHLORIDE LOCK 10 ML ONE; +SODIUM CHLORIDE LOCK 20 ML ONE; +fentaNYL CITRATE 100 MCG/2 ML VL ONE
[2025-04-10] MEDS: ceFAZolin 2 GM/D5W50ml 50 ML IV ONE (08:23)
[2025-04-10] MEDS: BUPIVACAINE 0.5% INJ 50ML VIAL IJ ONE (09:55)
[2025-04-10 10:03] VITALS: PULSE 72; RESP 16; TEMP 97.2; O2SAT 100
[2025-04-10] MEDS: METOCLOPRAMIDE HCL 5MG/ml INJ 2ml VIAL IV ONE (10:27)
[2025-04-10] MEDS: KETOROLAC TROMETH 30 MG/ML 1ML VIAL IV ONE (10:28)
[2025-04-10] MEDS: MORPHINE SULFATE 4 MG/ML SYR/VIAL IV PRN (10:54)
[2025-04-10 11:43] VITALS: BP 105/63; PULSE 58; RESP 12; O2SAT 100
--- NOTE | 2025-04-10 12:58 | DVHOP2 ---
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 These include but are not limited to complications of anesthesia, postoperative infection, incomplete relief of symptoms, recurrence of symptoms, damage to blood vessels, nerves and tendons, deep venous thrombosis, pulmonary embolism and possible need for repeat surgery in the future. Complications: None Estimated Blood Loss: Less than 5 mL Indications for Surgery: The patient is a 24-year-old female who presented to the clinic with a history of stiffness secondary to ACL reconstruction. She did not progress very well in physical therapy and had very limited range of motion from -10-70. Nonoperative and operative management options were discussed but due to failure of conservative management surgery in the form of knee arthroscopy with excision of scar tissue and manipulation under anesthesia was recommended given the patient's desire to obtain better range of motion and as per physical therapist's recommendation as well. Benefits, risks and treatment alternatives were discussed. Specific complications of the surgery such as neurovascular injury, infection, arthrofibrosis, loss of limb or life were discussed. The patient decided to proceed with the surgical option. Name of Procedure Performed Right knee arthroscopy, lysis of adhesions, excision of arthrofibrosis scar and manipulation under anesthesia Procedure Details Procedure Details: The patient was identified in the preoperative holding area and the surgical site was marked. The consent was verified. The patient was brought into the operating room and placed supine on the operating table. General anesthesia was administered. A tourniquet was applied over the proximal thigh. All the bony prominences were appropriately padded. The knee was positioned appropriately. The extremity was now prepped and draped in the usual sterile manner. A timeout was called out to confirm the identity of the patient, the nature of surgery, the site of surgery, the availability of implants and x-rays and allergies to medications. A standard anterolateral portal was established. A 30 degree scope was inserted. A standard anteromedial portal was established, a probe was inserted and the findings are as follows 1. Extensive scar tissue in all the compartments including suprapatellar pouch, medial and lateral gutters and the intercondylar notch. 2. Intact ACL graft and PCL 3. Intact medial compartment cartilage, normal medial meniscus 4. Intact lateral meniscus and lateral compartment cartilage 5. Mild chondromalacia patellofemoral joint The knee was examined under anesthesia and was found to have the following findings 1. Negative Amanda and drawer tests 2. Negative pivot shift test 3. Range of motion from 10 to 70 4. Intact varus and valgus stress test Based on these findings I decided to remove the scar tissue starting with the suprapatellar pouch and the patellofemoral joint. Extensive dense scar tissue was noted. This was removed sequentially with the help of a shaver. The suprapatellar pouch was cleared and good patellar mobility was noted. The medial and lateral gutters were also cleared. Carefully the scar tissue in front of the cruciate ligaments was removed so as to not disrupt the ligaments. Extension was noted to be full and complete 2-0 degrees. Then, manipulation under anesthesia was performed with gentle pressure and a short lever arm just below the knee joint to flex the knee approximately to 160. Excellent range of motion was noted. The ACL was probed and was noted to be of good tension after the manipulation without any tears noted. Internal brace was also noted. Irrigation was given and the skin incision was closed with 3-0 Monocryl. Disposition: Good, the patient was extubated and taken to the recovery without any complications. Plan: To have the patient follow up in two weeks. To start physical therapy tomorrow, she is already set up for that. Condition Good Disposition Home JONNY BANDA MD Apr 10, 2025 12:58
== END | disposition home or self-care (01) ==
LOC: SUR 08:16
PROVIDERS: ATTEND Orthopaedic Surgery Sports Medicine
DX: M24.661 Ankylosis, right knee (principal); M94.261 Chondromalacia, right knee; G40.909 Epilepsy, unspecified, not intractable, without status epilepticus; Z79.899 Other long term (current) drug therapy; Z86.2 Personal history of diseases of the blood and blood-forming organs and certain disorders involving the immune mechanism; Z98.890 Other specified postprocedural states
CPT/HCPCS: 29884; 36415; 80053; 81001; 85025; 85610; 85730; J0690; J1100; J1171; J1885; J2250; J2270; J2704; J2765; J3010; J3490

== ENCOUNTER 2025-07-28 21:42 | Emergency (ER) | payer BC ==
[~2025-07-28] VITALS: Ht 162.6 cm; Wt 73.6 kg
[~2025-07-28 21:42] MED LIST changes: -HYDROmorphone HCL 2 MG/ML VL/or syr IV PRN; -HYDROmorphone HCL 2 MG/ML VL/or syr ONE; -KETAMINE 50mg/ML 1ml syringe ONE; -LIDOCAINE 1% INJ PF 5ML AMP ONE; -LIDOCAINE HCL 2% TOP JELLY 5ML TOP ONE; -MIDAZOLAM HCL 2MG/2ML 2ml VIAL (1mg/ml) ONE; -MORPHINE SULFATE INJ 2 MG/ml SYRG IV PRN; -PROPOFOL 10 MG/ML 20 ML IV ONE; -SODIUM CHLORIDE LOCK 10 ML ONE; -SODIUM CHLORIDE LOCK 20 ML ONE; -fentaNYL CITRATE 100 MCG/2 ML VL ONE
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
[2025-07-29 00:49] VITALS: BP 105/74; PULSE 74; RESP 19; TEMP 97.8; O2SAT 99
== END 2025-07-29 01:00 | disposition home or self-care (01) ==
LOC: ER 21:42
DX: S13.4XXA Sprain of ligaments of cervical spine, initial encounter (principal); S46.911A Strain of unspecified muscle, fascia and tendon at shoulder and upper arm level, right arm, initial encounter; S56.911A Strain of unspecified muscles, fascia and tendons at forearm level, right arm, initial encounter; R51.9 Headache, unspecified; Z90.89 Acquired absence of other organs; V89.2XXA Person injured in unspecified motor-vehicle accident, traffic, initial encounter; Y92.410 Unspecified street and highway as the place of occurrence of the external cause; Y93.89 Activity, other specified; Y99.8 Other external cause status
CPT/HCPCS: 72040; 73080; 74018